=== PATIENT | male | born 1955 | race Caucasian/White ===

== ENCOUNTER → 2025-02-23 | Outpatient (CLI) | payer OTHER ==
[~2025-02-23] MED LIST: AMLO10 PO; ATOR40TA PO; IBUP400 PO; LOSA50 PO; POTCHL20ER PO
[2025-02-23 15:30] LABS: Prostate Specific Antigen 1.310 ng/mL (0.000-4.000)
== END ==
LOC: LAB SHORT 08:20 → LAB 08:20
PROVIDERS: Student in an Organized Health Care Education/Training Program
DX: Z12.5 Encounter for screening for malignant neoplasm of prostate (principal)
CPT/HCPCS: G0103

== ENCOUNTER 2025-03-02 07:31 | Day surgery (SDC) | payer OTHER ==
[2025-03-02] VITALS (18 sets, daily range): BP systolic 105–155; BP diastolic 61–92
[~2025-03-02] VITALS: Ht 175.3 cm; Wt 74.3 kg
[~2025-03-02 07:31] MED LIST changes: -IBUP400 PO; -POTCHL20ER PO
--- NOTE | 2025-03-02 08:02 | NUR ---
Ambulatory in Day SurgeryPre-Op teaching done. Pt verbalizes understanding. History, Chart, Medications and Allergies reviewed before start of procedure.Patient confirms NPO status and agrees with scheduled surgery. Patient States Post-Procedure ride home has been arranged.
[2025-03-02] MEDS ORDERED: IBUP400 PO (08:08)
[2025-03-02] MEDS ORDERED: POTCHL20ER PO (08:08)
--- NOTE | 2025-03-02 08:16 | NUR ---
History, Chart, Medications and Allergies reviewed before start of procedure. Patient confirms NPO status and agrees with scheduled surgery. Patient States Post-Procedure ride home has been arranged with significant other,
--- NOTE | 2025-03-02 08:33 | NUR ---
03/02/25 0833 Luly Haney CONFIRMED AND REVIEWED H&P, MEDCICATIONS, ALLERGIES, MEDICAL HISTORY, RESPIRATORY HISTORY, VITAL SIGNS, 3-LEAD EKG, CONSENTS, AND PHYSICIAN ORDERS. PATIENT CONFIRMS NPO STATUS AND AGREES WITH SCHEDULED PROCEDURE. MONITOR INTACT WITH CONTINUOUS PULSE OXIMETRY, CAPNOGRAPHY, 3-LEAD EKG, INTERMITTENT BP. SUPPLEMENTAL O2 TO BE TITRATED THROUGHOUT PROCEDURE TO MAINTAIN O2 SATURATION ABOVE 90%. PATIENT DETERMINED TO BE ASA APPROPRIATE FOR PROPOFOL SEDATION PRIOR TO START OF PROCEDURE BY DR. PINEDA.
--- NOTE | 2025-03-02 09:15 | NUR ---
Discharge instructions reviewed with patient. Patient verbalizes understanding. Copy given to patient to take home. Patient States Post-Procedure ride home has been arranged. Discharged via wheelchair to private car for ride home.
== END 2025-03-02 09:18 | disposition home or self-care (01) ==
LOC: ORSCMMR 07:31 → ORD 08:30 → ORSCMMR 09:18
PROVIDERS: Internal Medicine Gastroenterology
PROC: 0DBN8ZX Excision of Sigmoid Colon, Via Natural or Artificial Opening Endoscopic, Diagnostic (ICD-10-PCS; principal; 2025-03-02 08:30)
DX: Z12.11 Encounter for screening for malignant neoplasm of colon (principal); R19.5 Other fecal abnormalities; D12.5 Benign neoplasm of sigmoid colon; D37.4 Neoplasm of uncertain behavior of colon; I10 Essential (primary) hypertension; E78.00 Pure hypercholesterolemia, unspecified; Z86.19 Personal history of other infectious and parasitic diseases; Z79.899 Other long term (current) drug therapy
CPT/HCPCS: 88305; J2704; J7120